=== PATIENT | female | born 1980 | race Caucasian/White ===

== ENCOUNTER → 2022-04-30 10:04 | Outpatient (CLI) | payer OTHER, MEDICAID, SELFPAY ==
[2022-04-30 12:01] LABS: Add Manual Diff / Slide Review NO; Basophils Absolute Auto 0 /uL (0-100); Basophils Percent Auto 0.5 % (0-2); Eosinophils Absolute Auto 100 /uL (0-450); Eosinophils Percent Auto 1.6 % (2-4); Hematocrit 39.1 % (36-46); Hemoglobin 13.4 g/dL (12.0-16.0); Lymphocytes Absolute Auto 1500 /uL (1100-4500); Lymphocytes Percent Auto 26.7 % (25-40); Mean Corpuscular HGB Conc 34.2 % (30-36); Mean Corpuscular Hemoglobin 30.4 PG (26-34); Mean Corpuscular Volume 88.8 fL (80-100); Monocytes Absolute Auto 500 /uL (0-900); Monocytes Percent Auto 9.7 % (3-14); Neutrophils Absolute Auto 3500 /uL (1500-7000); Neutrophils Percent Auto 61.5 % (50-75); Platelet Count 328 X10^3/uL (150-400); Red Cell Distribution Width 13.7 % (11.6-14.8); White Blood Cell Count 5.7 X10^3/uL (4.5-11.0)
[2022-04-30 12:28] LABS: Alanine Aminotransferase 14 IU/L (<35); Albumin 4.8 g/dL (3.5-5.0); Albumin Globulin Ratio 1.5 (1.0-2.8); Alkaline Phosphatase 52 U/L (38-126); Aspartate Aminotransferase 20 IU/L (14-36); BUN Creatinine Ratio 11.1 (6-22); Bilirubin Total 0.6 mg/dL (0.2-1.3); Blood Urea Nitrogen 7 mg/dL (7-17); Calcium 9.4 mg/dL (8.4-10.2); Carbon Dioxide 25 mmol/L (22-32); Chloride 101 mmol/L (98-107); Cholesterol 168 mg/dL (140-199); Estimated Glomerular Filt Rate > 60 mL/min (>60); Globulin 3.2 g/dL (1.7-4.1); Glucose 77 mg/dL (70-100); HDL Cholesterol 81 mg/dL (40-60); HEMOLYSIS < 15 (0-50); LDL Cholesterol Calculated 65 mg/dL (<100); Sodium 139 mmol/L (137-145); Triglycerides 109 mg/dL (35-150)
[2022-04-30 12:32] LABS: High Sensitivity CRP - Cardiac < 0.3 mg/L (1.0-3.0)
[2022-04-30 12:43] LABS: Vitamin D 25 Hydroxy (D3) 40.4 ng/mL (30.0-100.0)
[2022-04-30 12:56] LABS: TSH w/ Reflex to FT4 4.39 uIU/mL (0.47-4.68)
[2022-04-30 13:32] LABS: Folate > 20.0 ng/mL (2.76-20.0); Vitamin B12 318 pg/mL (239-931)
== END ==
PROVIDERS: PCP Family Medicine; Referring Provider Family Medicine; Visit Provider Family Medicine
DX: R53.82 Chronic fatigue, unspecified (principal); G47.9 Sleep disorder, unspecified; M25.50 Pain in unspecified joint; R51.9 Headache, unspecified; Z13.220 Encounter for screening for lipoid disorders; Z13.0 Encounter for screening for diseases of the blood and blood-forming organs and certain disorders involving the immune mechanism
CPT/HCPCS: 36415; 80053; 80061; 82306; 82607; 82746; 84443; 85025; 86140

== ENCOUNTER → 2024-04-08 13:45 | Outpatient (CLI) | payer OTHER, SELFPAY | PROVIDERS: PCP Family Medicine; Visit Provider Family Medicine | DX: Z11.3 Encounter for screening for infections with a predominantly sexual mode of transmission (principal) | CPT/HCPCS: 87491; 87563; 87591 ==

== ENCOUNTER → 2024-04-15 08:41 | Outpatient (CLI) | payer OTHER, SELFPAY ==
[2024-04-18 20:36] LABS: HIV 1 RNA Non Reactive (Non Reactive); HIV 2 RNA Non Reactive (Non Reactive)
== END ==
PROVIDERS: PCP Family Medicine; Referring Provider Family Medicine; Visit Provider Family Medicine
DX: Z20.2 Contact with and (suspected) exposure to infections with a predominantly sexual mode of transmission (principal)
CPT/HCPCS: 36415; 87535; 87538

== ENCOUNTER 2024-10-22 09:30 | Emergency (ER) | payer OTHER, SELFPAY ==
[2024-10-22] VITALS (10 sets, daily range): BP systolic 91–107; BP diastolic 53–59; PULSE 77–95; RESP 16; TEMP 36.9–37.2; O2SAT 91–100
--- NOTE | 2024-10-22 09:44 | ED_ITS ---
HPI - General Adult General Chief complaint: Abdominal Pain Stated complaint: Stomach pain Time Seen by Provider: 10/22/24 09:43 Source: patient Mode of arrival: Ambulatory History of Present Illness HPI narrative: 44-year-old woman with no significant medical history presents with increasing abdominal pain and distention beginning on October 19. She made some minor changes to her diet which typically helps. Following day had some Pepto-Bismol. She has been having some loose stool without blood in it since. She is concerned with low-grade fevers and notes just diffuse abdominal tenderness. No flank pain no dysuria no vaginal discharge, no fevers, cough, palpitations, headaches. She does not have a history of any abdominal surgeries Related Data Allergies Allergy/AdvReac Type Severity Reaction Status Date / Time nitrofurantoin AdvReac Severe Hives Verified 10/13/24 11:44 [From Macrobid] Review of Systems Review of Systems Narrative: Pertinent positive and negative findings as per HPI Patient History Medical History PTSD (post-traumatic stress disorder) (~1983) Chicken pox (~1984) Skin tag Eczema (~1986) Perimenopause Social History Smoking Status: Former smoker Smoking Status: Former smoker Exam Initial Vital Signs Initial Vital Signs: Vital Signs Temperature 98.5 F 10/22/24 09:35 Pulse Rate 83 10/22/24 09:35 Respiratory Rate 16 10/22/24 09:35 Blood Pressure 107/54 L 10/22/24 09:35 Pulse Oximetry 100 10/22/24 09:35 Oxygen Delivery Method Room Air 10/22/24 09:35 General: Healthy appearing, mildly uncomfortable but Able to give a complete and coherent history. Well-nourished well-developed HEENT: Moist mucous membranes, normal sclera with reactive pupils, Respiratory: Lungs are clear to auscultation, no wheezing no rales no rhonchi. Full and symmetrical air movement Cardiac: Regular rate and rhythm no murmurs no bruits Abdomen: Distended, diffusely tender, no ascites appreciated no rebound, question of some guarding the left area around the umbilicus Skin: Warm and dry, no rashes Neurologic: Grossly neurologically intact with no obvious asymmetries or abnormalities Extremities: No trauma, well perfused Psych: Cooperative, appropriate insight and affect Course Orders Ordered: ED Orders 10/22/24 10:12 CT abdomen pelvis w con Stat 10/22/24 10:24 Complete Blood Count AUTO DIFF Stat Comprehensive Metabolic Panel Stat Lactate (Lactic Acid) Stat Lipase Stat 10/22/24 11:32 Ictotest Urine Stat Urine Culture Stat Urine Microscopic Stat Hydromorphone HCl (Hydromorphone 0.5 Mg Inj) 0.5 mg IV Q15MIN PRN PRN Reason: Pain, Last Admin: 10/22/24 12:12 Dose: 0.5 mg Documented By: Admin: 10/22/24 10:53 Dose: 0.5 mg Documented By: CHRISTELLE Discontinued Medications Sodium Chloride (Normal Saline 0.9%) 1,000 mls @ 1,000 mls/hr IV BOLUS ONE Stop: 10/22/24 11:11 Last Infusion: 10/22/24 11:48 Dose: Infused Documented By: Admin: 10/22/24 10:28 Dose: 1,000 mls/hr Documented By: CHRISTELLE Ondansetron HCl (Ondansetron 4 Mg/2 Ml Inj) 4 mg IV NOW ONE Stop: 10/22/24 10:13 Vital Signs Vital signs: Vital Signs - 8 hr 10/22/24 09:35 10/22/24 09:36 10/22/24 09:36 Temperature 98.5 F Pulse Rate 83 86 Respiratory Rate 16 Blood Pressure 107/54 L 107/54 L Pulse Oximetry 100 100 Oxygen Delivery Method Room Air 10/22/24 11:13 10/22/24 11:14 10/22/24 11:14 Temperature Pulse Rate 78 78 Respiratory Rate Blood Pressure 96/53 L Pulse Oximetry 91 100 Oxygen Delivery Method 10/22/24 11:30 10/22/24 11:30 10/22/24 12:15 Temperature Pulse Rate 80 83 Respiratory Rate Blood Pressure 100/59 L Pulse Oximetry 100 100 Oxygen Delivery Method 10/22/24 12:33 10/22/24 13:00 10/22/24 13:30 Temperature Pulse Rate 95 H 81 84 Respiratory Rate Blood Pressure Pulse Oximetry 95 100 96 Oxygen Delivery Method Medical Decision Making Lab Data 10/22/24 10:24 10/22/24 10:24 Labs: Lab Results 10/22/24 10/22/24 Range/Units 10:24 11:32 WBC 11.1 H (4.5-11.0) X10^3/uL RBC 4.34 (4.0-5.2) X10^6/uL Hgb 13.1 (12.0-16.0) g/dL Hct 39.1 (36-46) % MCV 90.1 (80-100) fL MCH 30.2 (26-34) PG MCHC 33.5 (30-36) % RDW 14.1 (11.6-14.8) % Plt Count 310 (150-400) X10^3/uL Neut % (Auto) 81.2 H (50-75) % Lymph % (Auto) 8.1 L (25-40) % [place] % (Auto) 9.7 (3-14) % Eos % (Auto) 0.8 L (2-4) % Baso % (Auto) 0.2 (0-2) % Neut # (Auto) 9000 H (8561-8071) /uL Lymph # (Auto) 900 L (2740-8247) /uL [place] # (Auto) 1100 H (0-900) /uL Eos # (Auto) 100 (0-450) /uL Baso # (Auto) 0 (0-100) /uL Sodium 135 L (137-145) mmol/L Potassium 3.5 (3.4-5.1) mmol/L Chloride 99 (98-107) mmol/L Carbon Dioxide 23 (22-32) mmol/L BUN 13 (7-17) mg/dL Creatinine 0.74 (0.52-1.04) mg/dL Estimated GFR > 60 (>60) mL/min BUN/Creatinine Ratio 17.6 (6-22) Glucose 79 (70-100) mg/dL Lactate 0.9 (0.7-2.1) mmol/L Calcium 8.5 (8.4-10.2) mg/dL Total Bilirubin 0.6 (0.2-1.3) mg/dL AST 20 (14-36) IU/L ALT 20 (<35) IU/L Alkaline Phosphatase 78 (38-126) U/L Total Protein 7.7 (6.3-8.2) g/dL Albumin 4.1 (3.5-5.0) g/dL Globulin 3.6 (1.7-4.1) g/dL Albumin/Globulin Ratio 1.1 (1.0-2.8) Lipase 22 L (23-300) U/L Ur Bilirubin Confirm Negative (Negative) Urine RBC 1-5/hpf (0-5/HPF) Urine WBC 5-10/hpf H (0-5/HPF) Ur Squamous Epith Cells 5-10 /hpf H (0-5/HPF) Urine Bacteria Moderate (10-30) H (None) Ur Culture Indicated? Specimen cultured Vol Urine Centrifuged 10ml (spun) Point of Care Testing Test Results Negative Urine Dip Bedside Urine Glucose Negative Bedside Urine Bilirubin + 1 Bedside Urine Ketone +++ 80 Urine Specific [place] 1.015 Bedside Urine Occult Blood + Bedside Urine pH 6.0 Bedside Urine Protein +/- 15 Bedside Urine Urobilinogen - Negative Bedside Urine Nitrite - Negative Bedside Urine Leukocytes +/- 15 Esterase Point of care testing: Point of Care Testing Test Results Negative Urine Dip Bedside Urine Glucose Negative Bedside Urine Bilirubin + 1 Bedside Urine Ketone +++ 80 Urine Specific [place] 1.015 Bedside Urine Occult Blood + Bedside Urine pH 6.0 Bedside Urine Protein +/- 15 Bedside Urine Urobilinogen - Negative Bedside Urine Nitrite - Negative Bedside Urine Leukocytes +/- [address] scan - abdomen/pelvis: Radiologist's Impression: PROCEDURE: CT ABDOMEN PELVIS W CON INDICATIONS: abdominal pain TECHNIQUE: After the administration of intravenous contrast, axial sections acquired from the lung bases to the pubic symphysis. Coronal and sagittal reformats were performed. For radiation dose reduction, the following was used: automated exposure control, adjustment of mA and/or kV according to patient size. COMPARISON: None. FINDINGS: Image quality: Diagnostic. Lower Chest: No significant findings. ABDOMEN: Liver: No solid mass. Gallbladder: No radiopaque gallstones or wall thickening. Biliary ducts: No biliary dilation. Pancreas: No ductal dilation. Spleen: Size is within normal limits. Adrenal Glands: No adrenal nodules. Kidneys and Ureters: No hydronephrosis. No solid mass. No complex renal cystic lesion which requires follow up. Stomach and Bowel: There are multiple abnormal appearing loops of small bowel present in the pelvis with some loops having marked wall thickening and edema and others having less marked wall thickening and edema. There is associated mild ascites in close proximity to these loops and deeper in the pelvis. Findings are consistent with small bowel enteritis. Consider infectious versus inflammatory versus ischemic etiologies. Peritoneum: Mild interloop fluid and mild pelvic ascites. No free air. Ventral Wall: No significant ventral hernia. Abdominal Nodes: No retroperitoneal or mesenteric adenopathy by size criteria. Vessels: Aorta and inferior vena cava are normal in size. PELVIS: Pelvic Organs: Unremarkable. Bladder: No bladder wall thickening, accounting for underdistention. Pelvic Nodes: No enlarged lymph nodes. Miscellaneous: No inguinal hernias are seen. Bones: No aggressive osseous abnormality. IMPRESSION: There is relatively impressive small bowel enteritis in the pelvis. Findings include those with significant wall edema and wall thickening. There is no free air. There is associated free fluid. Consider infectious versus inflammatory versus ischemic etiologies. Dictated by: Sundeep Putnam M.D. on 10/22/2024 at 13:03 MDM Narrative Medical decision making narrative: CC: Abdominal pain with distention and low-grade fevers for 4 days Data collected from: patient Medical records reviewed: Primary care notes are reviewed Differential considered: Partial bowel obstruction, abdominal mass, constipation, colitis, viral etiology Exam documented above, pertinent findings include: Patient is in no acute distress her abdomen is distended and tender without peritoneal signs at this time remainder of exam is benign Lab Test results independently reviewed as above. Pertinent findings: CBC shows a white count of 11.1 left shift at 81.2. Normal H&H Chemistries are entirely reassuring with normal electrolytes and renal function Lipase is low Urine has white cells squamous cells and some bacteria suspect that this is contaminated, we will wait till culture returns prior to treating with any antibiotics Imaging studies independently reviewed: Radiologically described relatively impressive small bowel enteritis in the pelvis include significant wall edema and wall thickening no free air there is associated free fluid Treatments: Fluids, nausea medicine, pain medical Re-evaluations: Patient is feeling significantly better after treatments above Discussion: Otherwise healthy 44-year-old woman with increasing abdominal pain, CT scan suggests an acute enteritis without bowel perforation, obstruction, appendicitis diverticulitis or bacterial abscess. Findings are all reviewed with the patient. She is quite reassured, confident that she will be able to keep liquids down going home. She has been using Pedialyte, we discussed adding heal water, me so soup and similar easily digested yet electrolyte rich options. I will give her a small course of Percocet, we did discuss the constipation side effects such, as well as Zofran. There was no indication for hospitalization at this time she is safe for discharge Discharge Plan Departure Patient Disposition: Home Clinical Impression: Enteritis Abdominal pain Qualifiers: Abdominal location: generalized Qualified Code(s): R10.84 - Generalized abdominal pain Instructions: DI for Enteritis Activity Restrictions/Additional Instructions: Thank you for coming in today Your blood work does not show significant kidney or liver abnormalities. Your CT scan does show an enteritis, inflammation in your small intestines. At this point you do not need to be in the hospital, you do not need antibiotics. You will benefit from further nausea medicine and I am going to also give you some Percocet for pain control. Percocet is a narcotic and can cause constipation. In terms of hydration, Pedialyte, coconut water, miso soup, Arnaldo news are going to be helpful. Please avoid dairy products and high sugar content products for at least a week. If you find that you are getting worse or develop any new symptoms, please feel free to return to the emergency department for further evaluation. Referrals: Hansa Sommers MD [Primary Care Provider] - Stand Alone Forms: Patient Portal/API/Survey
--- NOTE | 2024-10-22 10:12 | DI.CT.S_ITS ---
PROCEDURE: CT ABDOMEN PELVIS W CON INDICATIONS: abdominal pain TECHNIQUE: After the administration of intravenous contrast, axial sections acquired from the lung bases to the pubic symphysis. Coronal and sagittal reformats were performed. For radiation dose reduction, the following was used: automated exposure control, adjustment of mA and/or kV according to patient size. COMPARISON: None. FINDINGS: Image quality: Diagnostic. Lower Chest: No significant findings. ABDOMEN: Liver: No solid mass. Gallbladder: No radiopaque gallstones or wall thickening. Biliary ducts: No biliary dilation. Pancreas: No ductal dilation. Spleen: Size is within normal limits. Adrenal Glands: No adrenal nodules. Kidneys and Ureters: No hydronephrosis. No solid mass. No complex renal cystic lesion which requires follow up. Stomach and Bowel: There are multiple abnormal appearing loops of small bowel present in the pelvis with some loops having marked wall thickening and edema and others having less marked wall thickening and edema. There is associated mild ascites in close proximity to these loops and deeper in the pelvis. Findings are consistent with small bowel enteritis. Consider infectious versus inflammatory versus ischemic etiologies. Peritoneum: Mild interloop fluid and mild pelvic ascites. No free air. Ventral Wall: No significant ventral hernia. Abdominal Nodes: No retroperitoneal or mesenteric adenopathy by size criteria. Vessels: Aorta and inferior vena cava are normal in size. PELVIS: Pelvic Organs: Unremarkable. Bladder: No bladder wall thickening, accounting for underdistention. Pelvic Nodes: No enlarged lymph nodes. Miscellaneous: No inguinal hernias are seen. Bones: No aggressive osseous abnormality. IMPRESSION: There is relatively impressive small bowel enteritis in the pelvis. Findings include those with significant wall edema and wall thickening. There is no free air. There is associated free fluid. Consider infectious versus inflammatory versus ischemic etiologies. Dictated by: Sundeep Putnam M.D. on 10/22/2024 at 13:03 Approved by: Sundeep Putnam M.D. on 10/22/2024 at 13:12
[2024-10-22] MEDS: SODIUM CHLORIDE 0.9% 1,000 ML 1000 ML IV (10:28)
[2024-10-22 10:34] LABS: Add Manual Diff / Slide Review NO; Basophils Absolute Auto 0 /uL (0-100); Basophils Percent Auto 0.2 % (0-2); Eosinophils Absolute Auto 100 /uL (0-450); Eosinophils Percent Auto 0.8 % (2-4); Hematocrit 39.1 % (36-46); Hemoglobin 13.1 g/dL (12.0-16.0); Lymphocytes Absolute Auto 900 /uL (1100-4500); Lymphocytes Percent Auto 8.1 % (25-40); Mean Corpuscular HGB Conc 33.5 % (30-36); Mean Corpuscular Hemoglobin 30.2 PG (26-34); Mean Corpuscular Volume 90.1 fL (80-100); Monocytes Absolute Auto 1100 /uL (0-900); Monocytes Percent Auto 9.7 % (3-14); Neutrophils Absolute Auto 9000 /uL (1500-7000); Neutrophils Percent Auto 81.2 % (50-75); Platelet Count 310 X10^3/uL (150-400); Red Blood Cell Count 4.34 X10^6/uL (4.0-5.2); Red Cell Distribution Width 14.1 % (11.6-14.8); White Blood Cell Count 11.1 X10^3/uL (4.5-11.0)
[2024-10-22 10:45] LABS: Alanine Aminotransferase 20 IU/L (<35); Albumin 4.1 g/dL (3.5-5.0); Albumin Globulin Ratio 1.1 (1.0-2.8); Alkaline Phosphatase 78 U/L (38-126); Aspartate Aminotransferase 20 IU/L (14-36); BUN Creatinine Ratio 17.6 (6-22); Bilirubin Total 0.6 mg/dL (0.2-1.3); Blood Urea Nitrogen 13 mg/dL (7-17); Calcium 8.5 mg/dL (8.4-10.2); Carbon Dioxide 23 mmol/L (22-32); Chloride 99 mmol/L (98-107); Estimated Glomerular Filt Rate > 60 mL/min (>60); Globulin 3.6 g/dL (1.7-4.1); Glucose 79 mg/dL (70-100); HEMOLYSIS < 15 (0-50); Lipase 22 U/L (23-300); Potassium 3.5 mmol/L (3.4-5.1); Sodium 135 mmol/L (137-145); Total Protein 7.7 g/dL (6.3-8.2)
[2024-10-22 10:46] LABS: Lactate (Lactic Acid) 0.9 mmol/L (0.7-2.1)
[2024-10-22] MEDS: HYDROMORPHONE 0.5 MG INJ IV ×2 (10:53→12:12)
[2024-10-22 11:57] LABS: Ictotest Urine Negative (Negative); Urine Volume 10mL (spun)
[2024-10-22 12:01] LABS: Bacteria Urine Moderate (10-30); Culture Indicated Urine Specimen Cultured; RBC Urine 1-5/HPF (0-5/HPF); Squamous Epithelial Cell Urine 5-10 /HPF (0-5/HPF); WBC Urine 5-10/HPF (0-5/HPF)
== END 2024-10-22 14:38 | disposition home or self-care (01) ==
PROVIDERS: Emergency Provider Emergency Medicine; PCP Family Medicine
DX: K52.9 Noninfective gastroenteritis and colitis, unspecified (principal); R10.84 Generalized abdominal pain
CPT/HCPCS: 74177; 80053; 81003; 81015; 81025; 83605; 83690; 85025; 87086; 96361; 96374; 99283; 99284; J1171; Q9967

== ENCOUNTER → 2025-06-29 09:20 | Outpatient (CLI) | payer OTHER, SELFPAY ==
[2025-06-29 11:40] LABS: Hep C Virus Ab w/Reflex Quant NEGATIVE s/c (NEGATIVE)
[2025-06-29 12:20] LABS: Urine N gonorrhoeae NOT DETECTED
[2025-06-29 12:23] LABS: Urine Chlamydia NOT DETECTED
== END ==
PROVIDERS: PCP Family Medicine; Referring Provider Family Medicine; Visit Provider Family Medicine
DX: Z11.3 Encounter for screening for infections with a predominantly sexual mode of transmission (principal)
CPT/HCPCS: 36415; 86592; 86803; 87491; 87591